=== PATIENT | female | born 1985 | race Caucasian/White ===

== ENCOUNTER → 2018-04-12 14:18 | Outpatient (CLI) | payer BC, SELFPAY ==
[2018-04-12 08:12] VITALS: BMI 30.5
--- OUTSIDE RECORDS SUMMARY | 2018-06-14 14:50 | XMS RPT_ITS ---
:1985 Author Organization OHIP Care Team Providers Name Role Phone ALONSO FULLER ([facility]) Attending Unavailable Adam Brantley Attending Unavailable Jean Paul Bravo Referring Unavailable Adam Brantley Attending Unavailable Adam Brantley Referring Unavailable Jean Paul Bravo Primary Care Unavailable PROBLEMS PROBLEMS DATE TYPE CONDITION / CODE ATTENDING STATUS SOURCE 04/12/2018 Unknown J02.9 - Acute Adam Brantley Active Sarah pharyngitis, Community unspecified / Hospital J02.9(ICD-10) Repository PROCEDURES PROCEDURES No Procedure Records FoundRESULTS RESULTS Observed: 04/12/2018 Status: F Source: [place] CULTURE, R/O STREP A 2:36 PM [facility] REPOSITORY KEESHA Culture No Group A Beta Streptococcus isolated. * This cultures intended use is to screen for Beta Streptococcus A only. All other pathogens and potential pathogens will not be screened for or reported. If a complete workup of all potential pathogens is indicated an order for a routine throat culture is required. ORGANISM 1: Streptococcus group C Amount Growth 1+ Performed By: #### M100.010 #### [facility] [address] 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 No complaints of fever, sweats, rash, nausea, constricted/pruritic airway, drooling, cough, chest pressure/shortness of breath/wheeze. Patient is a non-smoker noting no other members in household who smoke or have similar symptoms. No cghj-gzt-guocklb products have been taken to assist with symptoms. No other associated symptoms and no other alleviating or aggravating factors. ROS Const Constitutional: No other (ROS negative x10 other than as noted above) Exam Const General: cooperative, healthy appearing, no acute distress, uncomfortable Nutritional Appearance: average body habitus Orientation: alert, awake, oriented x3 HENMT Head: normal to inspection Ears: hearing grossly normal bilaterally, external ears normal, TM's normal bilaterally, EAC's normal Nose: external nose normal, nares normal, septum normal, no nasal discharge Face and sinus: normal facial exam, sinuses nontender, face symmetric Mouth: tongue normal, lip normal, oral mucosae normal Teeth and gingiva: dentition normal, gingiva normal Throat: uvula midline, posterior oropharynx normal, no postnasal drainage, abnormal tonsil bilaterally erythema (Rapid strep test today negative) Eyes General: appearance normal, both eyes and all related structures Neck Neck: normal visual inspection, full ROM, no lymphadenopathy, no meningeal signs, supple Neck mass: No Thyroid: thyroid normal Lymphatic: no lymphadenopathy noted Chest Chest palpation AND inspection: normal inspection of the chest Resp Effort AND Inspection: normal respiratory effort, able to speak in complete sentences Auscultation: Bilateral: Clear to Auscultation Cardio Palpation: normal PMI Rate: regular rate Rhythm: regular rhythm Heart Sounds: S1 normal, S2 normal, no gallops, no murmurs, no rubs Pulses: radial pulses present GI Inspection: normal to inspection Palpation: soft, no hepatosplenomegaly Skin General: no rashes or lesions noted Neuro General: alert, awake, oriented x3, gait normal Cognition: normal cognition Speech: speech normal Gait: normal gait Motor: muscle tone normal throughout Sensory Exam: no sensory deficits noted Psych Appearance: grossly normal Mental Status: mental status grossly normal Mood: congruent mood Affect: normal affect Speech and Movement: speech and movement normal Attitude: cooperative Thought Process: normal Thought Content: normal Judgment: judgment good Results BMSRAPIDSTREPA Office Rapid Strep A Negative Last Edit by Loiusa Wadsworth on 04/12/18 08:20 Assessment AND Plan Plan Patient aware today's rapid strep test was negative therefore culture sent to lab for further evaluation. Clear fluids, rest, Advil/Tylenol/Claritin-D, saltwater gargles as needed for symptomatic relief. Avoid tobacco smoke exposure. Work excuse for today and tomorrow at patient's request. Follow-up PCP in 5-7 days should symptoms not improve, sooner should symptoms worsen or any other concerns develop. Patient states acknowledging understanding all the above. This note was generated with [employer] dictation software. It may contain incorrect words, spelling, and punctuation that were not noted in checking the note before signing. Orders Orders: Coding Level of Care Code Off vis,new,level 3 04/12/18 0837 <Electronically signed by Adam DOYLE> Date Adam DOYLE Cosigner Signature: Date (if applicable) CC: PROGRESS Observed: 10/12/2017 Status: COMPLETED Source: [place] 8:[address] [facility] REPOSITORY HNO ID: [id number] Author: Alonso Mcgowan (Catalyst Manufacturing Operator) Jonny Service: (none) Author Type: Nurse Practitioner Type: Progress Notes Filed: 10/12/2017 8:05 AM Note Text: HPI/CC: Magno Villasenor is a 32 year old female who [facility]. New concerns today include none- needs refills Has not used ativan in many months. REVIEW OF SYSTEMS: GENERAL:Denies fever, chills, night sweats, or changes in weight. DERMATOLOGIC: Denies any new skin conditions, rashes or changing moles. EYES: Denies recent visual changes., wears glasses/contacts ENT: Denies hearing loss or tinnitus RESPIRATORY: Denies any cough, dyspnea, or wheezing. CARDIOVASCULAR: Denies any chest pain with exertion or at rest, palpitations, syncope, or edema. BREASTS: Denies any breast lumps, tenderness, dimpling, skin changes, or nipple discharge. GASTROINTESTINAL: Denies any nausea, vomiting, abdominal pain, heartburn, changes in bowel habit, Denies any rectal bleeding. GENITOURINARY: Denies any urinary frequency, urgency, incontinence, dysuria. Denies vaginal odor, discharge or lesions. Denies irregular vaginal bleeding or spotting. No LMP recorded. Patient is not currently having periods (Reason: IUD). MUSCULOSKELETAL: Denies any joint swelling, crepitus, joint pain, or loss of range of motion., Denies back pain. NEURO: Denies any headaches, tremors, dizziness, vertigo, memory loss, confusion., Denies weakness, numbness or tingling.. PSYCHIATRIC: Denies any sleeping problems, history of abuse, marital discord., Denies any anxiety or depression. HEMATOLOGIC/LYMPHATIC/IMMUNOLOGIC: Denies anemia, bruising, bleeding abnormalities. ENDOCRINE: Denies any heat or cold intolerance, polyuria or polydipsia. HISTORIES PAST MEDICAL HISTORY Diagnosis Date - Anxiety disorder PAST SURGICAL HISTORY Procedure Laterality Date - LEEP PROCEDURE (CONSTRUCTION DRILLER DEPT)_*FL 2002 EXCISION OF VULVAR AND PERINEAL CONDYLOMA - VAGINOSCOPY 2014 FAMILY HISTORY Problem Relation Age of Onset - healthy [OTHER] Mother - healthy [OTHER] Father - No Known Problems Brother - No Known Problems Brother - No Known Problems Son - No Known Problems Daughter Social History Marital status: Spouse name: KAREN Years of education: 12 Number of children: 2 Occupational History Occupation Employer Comment [employer] Social History Main Topics Smoking status: Current Every Day Smoker Packs/day: 1.00 Years: 2.00 Types: Cigarettes Smokeless tobacco: Never Used Alcohol use: Yes Comment: rare Drug use: No Sexual activity: Yes Partners with: Male Comment: Mirena Social History Narrative 2 kids- 1 son, 1 dtr Current Outpatient Prescriptions on File Prior to Visit: Levonorgestrel (MIRENA) 20 mcg/24 hr INTRAARTIC IUD use as directed No current facility-administered medications on file prior to visit. ALLERGIES No Known Allergies OBJECTIVE/PHYSICAL EXAMINATION: BP 94/66 Pulse 84 Resp 16 Wt 80.3 kg (177 lb) BMI 30.38 kg/m? General appearance: Well appearing, alert, in no acute distress, well-hydrated, well nourished. Skin: Skin color, texture, turgor normal, no suspicious rashes or lesions Head: Normocephalic, no masses, lesions, tenderness or abnormalities Eyes: Anicteric sclera. Pupils are equally round and reactive to light. Extraocular movements are intact. Ears: External ears normal, canals clear, TM's normal Nose/Sinuses: Nares normal, septum midline, mucosa normal, no drainage or sinus tenderness Oropharynx: Lips, mucosa, and tongue normal, teeth and gums normal, oropharynx normal Neck: Supple, no adenopathy; thyroid symmetric, normal size, no bruits Back: Normal exam Lungs: Lungs clear to auscultation. No wheezing, rhonchi, rales Heart: Regular rate and rythm without murmur, normal S1 and S2 Breasts: deferred Abdomen: Normal abdominal exam, Abdomen soft, non-tender. Bowel sounds normal. No masses, organomegaly Extremities: No deformities, edema, skin discoloration, clubbing or cyanosis. Good capillary refill. Musculoskeletal: Spine range of motion normal. Muscular strength intact, No joint swelling, deformity, or tenderness Peripheral pulses: Normal Neuro:Awake, alert and oriented x 3, Cranial nerves II-XII grossly intact, Reflexes symmetrical, Normal gait and No involuntary motions. Pelvic: Deferred ASSESSMENT/PLAN: 1. Anxiety disorder, unspecified type - ICD9: 300.00, ICD10: F41.9 - CITALOPRAM 20 MG TABLET - LORAZEPAM 0.5 MG TABLET. [facility] website checked and validated. All prescriptions have been APPROPRIATELY filled. No suspicious activity was identified. 10/12/2017 by Alonso Fuller APRN.ABDULKADIR -f/u in 1 year Alonso Fuller APRN.CNP CNOV Observed: 10/12/2017 Status: COMPLETED Source: [place] 7:40 AM [facility] REPOSITORY Office Visit (FAMPWS) MAGNO VILLASENOR ([id number]) 1985 F Date Time Provider Department 10/12/17 7:40 AM ALONSO FULLER (ABDULKADIR) FAMPWS During your visit today, we recorded the following information about you: Pulse Respiration Blood pressure Weight 84/minute 16/minute 94/66 80.3 kg Alonso Fuller APRN.CNP 10/12/2017 8:05 AM Signed HPI/CC: Magno Villasenor is a 32 year old female who presents for a well adult exam/[facility] care. New concerns today include none- needs refills Has not used ativan in many months. REVIEW OF SYSTEMS: GENERAL:Denies fever, chills, night sweats, or changes in weight. DERMATOLOGIC: Denies any new skin conditions, rashes or changing moles. EYES: Denies recent visual changes., wears glasses/contacts ENT: Denies hearing loss or tinnitus RESPIRATORY: Denies any cough, dyspnea, or wheezing. CARDIOVASCULAR: Denies any chest pain with exertion or at rest, palpitations, syncope, or edema. BREASTS: Denies any breast lumps, tenderness, dimpling, skin changes, or nipple discharge. GASTROINTESTINAL: Denies any nausea, vomiting, abdominal pain, heartburn, changes in bowel habit, Denies any rectal bleeding. GENITOURINARY: Denies any urinary frequency, urgency, incontinence, dysuria. Denies vaginal odor, discharge or lesions. Denies irregular vaginal bleeding or spotting. No LMP recorded. Patient is not currently having periods (Reason: IUD). MUSCULOSKELETAL: Denies any joint swelling, crepitus, joint pain, or loss of range of motion., Denies back pain. NEURO: Denies any headaches, tremors, dizziness, vertigo, memory loss, confusion., Denies weakness, numbness or tingling.. PSYCHIATRIC: Denies any sleeping problems, history of abuse, marital discord., Denies any anxiety or depression. HEMATOLOGIC/LYMPHATIC/IMMUNOLOGIC: Denies anemia, bruising, bleeding abnormalities. ENDOCRINE: Denies any heat or cold intolerance, polyuria or polydipsia. HISTORIES PAST MEDICAL HISTORY Diagnosis Date - Anxiety disorder PAST SURGICAL HISTORY Procedure Laterality Date - LEEP PROCEDURE (CONSTRUCTION DRILLER DEPT)_*FL 2002 EXCISION OF VULVAR AND PERINEAL CONDYLOMA - VAGINOSCOPY 2014 FAMILY HISTORY Problem Relation Age of Onset - healthy [OTHER] Mother - healthy [OTHER] Father - No Known Problems Brother - No Known Problems Brother - No Known Problems Son - No Known Problems Daughter Social History Marital status: Spouse name: KAREN Years of education: 12 Number of children: 2 Occupational History Occupation Employer Comment [employer]* Social History Main Topics Smoking status: Current Every Day Smoker Packs/day: 1.00 Years: 2.00 Types: Cigarettes Smokeless tobacco: Never Used Alcohol use: Yes Comment: rare Drug use: No Sexual activity: Yes Partners with: Male Comment: Mirena Social History Narrative 2 kids- 1 son, 1 dtr Current Outpatient Prescriptions on File Prior to Visit: Levonorgestrel (MIRENA) 20 mcg/24 hr INTRAARTIC IUD use as directed No current facility-administered medications on file prior to visit. ALLERGIES No Known Allergies OBJECTIVE/PHYSICAL EXAMINATION: BP 94/66 Pulse 84 Resp 16 Wt 80.3 kg (177 lb) BMI 30.38 kg/m? General appearance: Well appearing, alert, in no acute distress, well-hydrated, well nourished. Skin: Skin color, texture, turgor normal, no suspicious rashes or lesions Head: Normocephalic, no masses, lesions, tenderness or abnormalities Eyes: Anicteric sclera. Pupils are equally round and reactive to light. Extraocular movements are intact. Ears: External ears normal, canals clear, TM's normal Nose/Sinuses: Nares normal, septum midline, mucosa normal, no drainage or sinus tenderness Oropharynx: Lips, mucosa, and tongue normal, teeth and gums normal, oropharynx normal Neck: Supple, no adenopathy; thyroid symmetric, normal size, no bruits Back: Normal exam Lungs: Lungs clear to auscultation. No wheezing, rhonchi, rales Heart: Regular rate and rythm without murmur, normal S1 and S2 Breasts: deferred Abdomen: Normal abdominal exam, Abdomen soft, non-tender. Bowel sounds normal. No masses, organomegaly Extremities: No deformities, edema, skin discoloration, clubbing or cyanosis. Good capillary refill. Musculoskeletal: Spine range of motion normal. Muscular strength intact, No joint swelling, deformity, or tenderness Peripheral pulses: Normal Neuro:Awake, alert and oriented x 3, Cranial nerves II-XII grossly intact, Reflexes symmetrical, Normal gait and No involuntary motions. Pelvic: Deferred ASSESSMENT/PLAN: 1. Anxiety disorder, unspecified type - ICD9: 300.00, ICD10: F41.9 - CITALOPRAM 20 MG TABLET - LORAZEPAM 0.5 MG TABLET. [employer] website checked and validated. All prescriptions have been APPROPRIATELY filled. No suspicious activity was identified. 10/12/2017 by Alonso Fuller APRN.AUTOMOTIVE FUEL INJECTION SERVICER -f/u in 1 year Alonso Fuller APRN.AUTOMOTIVE FUEL INJECTION SERVICER Referring Provider: SELF [200] Allergies As of Date: 10/12/2017 (No Known Allergies) Date Reviewed: 10/12/2017 Reviewed by: Guerrero Toscano LPN - Fully Assessed Reason for Visit: Recheck [92] Cmt: medication refills Visit Diagnosis:Anxiety disorder, unspecified type [F41.9] Order(s):citalopram (CELEXA) 20 mg tabletTake 1 tablet by mouth once daily.Disp: 30 tabletRfl: 10 LORazepam (ATIVAN) 0.5 mg tabTake 1 tablet by mouth twice daily as needed (anxiety) for up to 180 days.Disp: 20 tabletRfl: 1 Prescriptions as of 10/12/2017 Sig: CITALOPRAM 20 MG TABLET Take 1 tablet by mouth once d* LORAZEPAM 0.5 MG TABLET Take 1 tablet by mouth twice * MIRENA 20 MCG/24 HR (5 YEARS)* use as directed Problem List As Of Date 10/12/2017 Noted Resolved SUPERVIS OTHER NORMAL PREG [Z34.80] INVALID FOR*06/15/2006 COMMON MIGRAINE W/O MENTN INTRACT [G43.009] INVALID FOR* Anxiety disorder [F41.9] INVALID FOR* Prescriptions ordered this encounter Disp Refills Start End CITALOPRAM 20 MG TABLET 30 t* 10 10/12/2017 11/11/2017 Route: ORAL Sig: Take 1 tablet by mouth once daily. LORAZEPAM 0.5 MG TABLET 20 t* 1 10/12/2017 04/10/2018 Class: Print RX Route: ORAL Sig: Take 1 tablet by mouth twice daily as needed (anxiety) for up to 180 days. Medications Discontinued During This Encounter buPROPion XL (WELLBUTRIN XL) 150 mg * 90 t* 3 05/13/2017 10/12/2017 Route: ORAL Sig: Take 1 tablet by mouth once daily. Disc: Reason for discontinue is not on file. citalopram (CELEXA) 20 mg tablet 30 t* 0 09/23/2017 10/12/2017 Route: ORAL Sig: Take 1 tablet by mouth once daily. Disc: Reason for discontinue is not on file. LORazepam (ATIVAN) 0.5 mg tab 20 t* 1 09/13/2016 10/12/2017 Class: Print RX Route: ORAL Sig: Take 1 tablet by mouth twice daily as needed (anxiety). Disc: Reason for discontinue is not on file. Encounter Status:Closed by ALONSO FULLER CNP on 10/12/17 ALLERGIES ALLERGIES DATE TYPE / CODE NAME / CODE REACTION SEVERITY SOURCE 04/12/2018 Drug No Known Unknown [facility] Allergy/416 Allergies/I50169 Hospital 154178(SNOM 0388(RXNORM) Repository ED CT) Drug NO KNOWN [facility] Class/02656 ALLERGIES Main [place] 1003(SNOMED Repository CT) ENCOUNTERS ENCOUNTERS ADMIT/DISCHARGE ACCOUNT ADMITTING ENCOUNTER LOCATION SOURCE NUMBER CLASS 04/12/2018 [id number] [facility] ing:[facility]SPEC Repository 04/12/2018/04/12/19 [id number] Ambulatory BMSBuilding:[address] [place] [address].[facility] Repository 10/12/2017/10/14/19 [id number] Ambulatory [address] Repository PAYERS PAYERS ENCOUNTER GUARANTOR PAYER SUBSCRIBER SOURCE 04/12/2018 KAREN VILLASENOR3359 [facility] [place] Insurance:ANTHEMPolic ROSEDOB: [facility] mag BRANDON y Number: [id number] Hospital [address]Wun: (330) [id number] Repository [phone] () Date:[id number] [address], [place] [address]JI: 04/12/2018 Secondary NOT GIVENUNK [place] Insurance:SELF PAY [facility] Number: Effective Repository Date:2018-04-12 04/12/2018 KAREN VILLASENOR3359 [facility] [place] Insurance:ANTHEMPolic ROSEDOB: [facility] mag BRANDON y Number: [id number] Hospital [id number]: (330 [id number] Repository [phone] () Date:[id number] [address], [place] [address]BH: 04/12/2018 Secondary NOT GIVENUNK Sarah Insurance:SELF PAY [facility] Number: Effective Repository Date:2018-04-12
== END ==
LOC: LABSPEC 14:20
PROVIDERS: Family Provider Family Medicine; PCP Family Medicine; Referring Provider Physician Assistant; Visit Provider Physician Assistant
DX: J02.9 Acute pharyngitis, unspecified (principal)
CPT/HCPCS: 87081

== ENCOUNTER → 2019-05-29 09:48 | Outpatient (CLI) | payer BC, SELFPAY ==
[2018-04-12 08:12] VITALS: BMI 30.5
--- NOTE | 2019-05-29 09:53 | US_ITS ---
STUDY: ABDOMINAL ULTRASOUND - RIGHT UPPER QUADRANT REASON FOR VISIT: Female, 34 years old. Right upper quadrant pain, on and off x3 weeks. TECHNIQUE: Ultrasound evaluation of the right upper quadrant was performed with real-time and static blanc-scale imaging. TECHNICAL QUALITY: Adequate. COMPARISON: None. FINDINGS: Liver: The liver measures 12.4 cm. There is normal echogenicity of the liver. The bile ducts are within normal limits. There is hepatic color flow. The direction of portal flow is hepatopetal. There is no demonstrated mass lesion. Gallbladder: Normal distended gallbladder. The gallbladder wall measures 1.8 mm. There is a negative sonographic Dan''s sign. There is no pericholecystic fluid. There are no gallstones. Common Bile Duct (C.B.D.): The common bile duct measures 3.1 mm. Pancreas: Normal size of the head, body and tail of the pancreas. There is normal echogenicity of the pancreas. There is no demonstrated pancreatic mass or cyst. The pancreatic duct is not dilated. Right Kidney: Normal size of the right kidney. The right kidney measures 11.1 x 6.1 x 3.9 cm. Normal renal cortex. The right cortex measures 1.1 cm. There is no demonstrated renal mass or cyst. There is no right hydronephrosis. US/Abdomen Limited IMPRESSION: Normal right upper quadrant ultrasound examination. Electronically Signed: Ryan Tovar MD at 9:13 EDT , Service support ,
== END ==
LOC: US 09:49
PROVIDERS: PCP Family Medicine; Referring Provider Family Medicine; Visit Provider Family Medicine
DX: R10.11 Right upper quadrant pain (principal)
CPT/HCPCS: 76705

== ENCOUNTER → 2019-07-26 12:04 | Outpatient (CLI) | payer BC, SELFPAY ==
[2018-04-12 08:12] VITALS: BMI 30.5
[2019-07-26 15:43] LABS: T4 Free Direct 1.36 ng/dL (0.76-1.46); Thyroid Stim Hormone (TSH) 1.27 uIU/mL (0.358-3.74)
[2019-07-30 20:17] LABS: Anti-Thyroglobulin AB < 1.0 IU/mL (0.0-0.9); Thyroglobulin, Serum Qt. 24.3 ng/mL (1.5-38.5); Thyroid Peroxidase AB < 9 IU/mL (0-34)
== END ==
LOC: MFPLAB 12:05
PROVIDERS: PCP Family Medicine; Visit Provider Family Medicine
DX: E01.0 Iodine-deficiency related diffuse (endemic) goiter (principal)
CPT/HCPCS: 36415; 84432; 84439; 84443; 86376; 86800

== ENCOUNTER → 2019-08-07 09:11 | Outpatient (CLI) | payer BC, SELFPAY ==
[2018-04-12 08:12] VITALS: BMI 30.5
--- NOTE | 2019-08-07 09:16 | US_ITS ---
STUDY: THYROID ULTRASOUND REASON FOR EXAM: Female, 34 years old. Thyromegaly on exam TECHNIQUE: Ultrasound evaluation of the thyroid was performed with real-time and static blanc-scale imaging. COMPARISON: None. FINDINGS: RIGHT LOBE: The right lobe of the thyroid gland measures 5.4 x 1.8 x 1.5 cm. There is a homogeneous echotexture. There are no demonstrated solid, cystic or complex lesions. LEFT LOBE: The left lobe of the thyroid gland measures 5.4 x 1.7 x 1.6 cm. There is a homogeneous echotexture. There are no demonstrated solid, cystic or complex lesions. ISTHMUS: The isthmus measures 0.3 cm. The regional lymph nodes are normal. US/Thyroid IMPRESSION: Borderline enlargement of the thyroid, but no discrete lesion or hyperemia. Thyroid is homogeneous and sonographically normal in appearance. Electronically Signed: Delmer Lazo MD at 10:11 EDT , Service support ,
== END ==
PROVIDERS: PCP Family Medicine; Referring Provider Family Medicine; Visit Provider Family Medicine
DX: E01.0 Iodine-deficiency related diffuse (endemic) goiter (principal)
CPT/HCPCS: 76536

== ENCOUNTER → 2019-08-24 09:04 | Outpatient (CLI) | payer BC, SELFPAY ==
[2018-04-12 08:12] VITALS: BMI 30.5
[2019-08-24 10:13] LABS: Absolute Lymphocyte Count 1.91 X10^3/uL (0.83-4.51); Absolute Neutrophil Count 2.5 X10^3/uL (2.0-7.7); Basophil# 0.05 X10^3/uL; Eosinophil# 0.13 X10^3/uL; Eosinophils% 2.6 % (0-5); Hematocrit 41.5 % (37-47); Hemoglobin 13.8 g/dL (12.0-15.0); Lymphocyte # 1.91 X10^3/ul (4.0); Lymphocyte % 38.2 % (19-41); Mean Corp Hgb Conc 33.3 g/dL (32-36); Mean Corpuscular Hgb 30.3 pg (27.0-32.0); Mean Corpuscular Volume 91.2 fL (81-99); Mean Platelet Vol. 10.8 fl (6.2-12.0); Monocyte# 0.42 X10^3/uL; Monocyte% 8.4 % (0-10); NRBC Flagged by Analyzer 0 % (0-5); Neutrophil # 2.48 X10^3/uL (2.7-7.7); Neutrophil % 49.6 % (47-70); Platelet Count 314 K/mm3 (150-450); RBC Distribution Width CV 12.3 % (11.6-14.6); RBC Distribution Width SD 40.9 fl (35.1-43.9); Red Blood Count 4.55 M/mm3 (4.2-5.4)
[2019-08-24 10:28] LABS: ALB/GLOB Ratio 1.3 RATIO (0.9-2.4); AST(SGOT) 12 U/L (15-37); Alanine Aminotransfer ALT/SGPT 20 U/L (13-56); Albumin, Serum 4.1 g/dL (3.2-5.0); Alkaline Phosphatase 57 U/L (45-117); Anion Gap 4 (5-15); BUN 12 mg/dL (7-18); BUN/Creat Ratio 15.2 RATIO (10-20); Calcium,Total 8.9 mg/dL (8.5-10.1); Chloride 108 mmol/L (98-107); Cholesterol 126 mg/dL (200); Creatinine, Serum 0.79 mg/dL (0.55-1.02); EST Glomerular Filtration Rate 87 mL/min (>60); Est Glom Filt Rate - Afr Amer 106 mL/min (>60); Globulin 3.1 g/dL (2.2-4.2); Glucose 90 mg/dL (74-106); High Density Lipoprotein 57 mg/dL; Potassium 4.2 mmol/L (3.5-5.1); Protein, Total 7.2 g/dL (6.4-8.2); Sodium Level 140 mmol/L (136-145); Triglycerides 37 mg/dL; Very Low Density Lipoprotein 7 mg/dL (5-40)
== END ==
PROVIDERS: PCP Family Medicine; Referring Provider Family Medicine; Visit Provider Family Medicine
DX: Z00.00 Encounter for general adult medical examination without abnormal findings (principal)
CPT/HCPCS: 36415; 80053; 80061; 85025

== ENCOUNTER 2019-08-26 15:41 | Emergency (ER) | payer BC, SELFPAY ==
[2018-04-12 08:12] VITALS: BMI 30.5
[2019-08-26 15:43] VITALS: BP 146/97; PULSE 109; RESP 16; TEMP 36.5; O2SAT 98; BMI 26.2
--- NOTE | 2019-08-26 15:57 | ED.VISSUMM ---
- ER Visit Summary Date of Service: 08/26/19 Chief Complaint: [Lump above collarbone] History of Present Illness: The patient is a 34 F [does the emergency department complaint of a lump above her collarbone that she noticed this morning. Patient states that she was sitting in a have some coffee and had a soreness above her collarbone when she touched that she noted a lump that was painful. Patient states that she had a physical 2 days ago and received a tetanus shot. Patient had complained at that time of some soreness in her throat and left ear. Is any fever or cough. She has no medical history.] Physical Examination: [HEENT-PERRLA, EOMI. Cranial nerves II through XII grossly intact. TMs clear. Mucous membranes moist. No adenopathy. Patient has a left supraclavicular lymph node that measures about a centimeter in diameter that is tender to palpation. The lymph node is freely movable. There is no erythema or cellulitis noted. Cardiovascular-regular rate and rhythm without murmur or ectopy Lungs-clear to auscultation, chest wall stable without crepitus or subcu emphysema Abdomen-normoactive bowel sounds, soft, nontender, no rebound or rigidity, no peritoneal signs. Extremities-intact ?4, normal range of motion, normal pulses, atraumatic.] Test Results: [None indicated] Emergency Department Course and Treatment: [Patient was started on Augmentin] Treatment Plan: [We will be treated with Augmentin and referred to ENT for follow-up in 5 to 7 days.] Disposition: [Discharged home in stable condition] Impression: [Adenitis] This note was generated with [employer] dictation software. It may contain incorrect words, spelling, and punctuation that were not noted in review of the chart prior to signing ED Disposition - Plan for ED Patient: Referrals: Vito Cedillo MD [Primary Care Provider] -
--- NOTE | 2019-08-26 15:59 | DCINST.ED_ITS ---
ED Disposition - Plan for ED Patient: Instructions: ED ADENITIS Cervical Abx Tx Prescriptions: Amoxicillin/Potassium Clav [Augmentin 875-125 Tablet] 1 ea PO BID #20 tab Transmission Status: Pending to [id number] Referrals: Vito Cedillo MD [Primary Care Provider] - Oleg Gallagher MD [STAFF PHYSICIAN] - 5-7 Days
[2019-08-26 16:21] VITALS: PULSE 88; RESP 16; O2SAT 99
== END 2019-08-26 16:22 | disposition home or self-care (01) ==
LOC: ED 16:18
PROVIDERS: Emergency Provider Emergency Medicine; PCP Family Medicine
DX: I88.9 Nonspecific lymphadenitis, unspecified (principal)
CPT/HCPCS: 99282

== ENCOUNTER → 2019-08-29 10:19 | Outpatient (CLI) | payer BC, SELFPAY ==
[2019-08-26 15:43] VITALS: BMI 26.2
--- NOTE | 2019-08-29 10:24 | US_ITS ---
STUDY: SUPERFICIAL ULTRASOUND - LEFT SUPRACLAVICULAR REGION. REASON FOR EXAM: Female, 34 years old. PALPABLE LUMP LT SUPRACLAVICULAR TECHNIQUE: A superficial ultrasound was performed with real-time and static blanc-scale imaging. COMPARISON: None. FINDINGS: The palpable abnormality corresponds to a 1.3 cm x 1.2 cm x 0.7 cm predominantly cystic nodule. A biopsy is recommended. Adjacent to this, there is a 9 mm x 5 mm x 5 mm similar-appearing nodule. US/Head/Neck Soft Tissue IMPRESSION: There are 2 predominantly cystic nodules in the left supraclavicular region as described. Aspiration/biopsy recommended. Electronically Signed: Jose Juan Mcguire, at 11:40 EDT , Service support ,
== END ==
PROVIDERS: PCP Family Medicine; Referring Provider Family Medicine; Visit Provider Family Medicine
DX: R22.1 Localized swelling, mass and lump, neck (principal)
CPT/HCPCS: 76536

== ENCOUNTER → 2020-08-27 08:22 | Outpatient (CLI) | payer BC, SELFPAY ==
[2019-09-06 07:55] VITALS: BMI 25.7
[2020-08-27 10:00] LABS: Absolute Neutrophil Count 3.4 X10^3/uL (2.0-7.7); Basophil# 0.04 X10^3/uL; Basophil% 0.7 % (0-1); Eosinophil# 0.19 X10^3/uL; Eosinophils% 3.2 % (0-5); Hematocrit 42.3 % (37-47); Hemoglobin 14.4 g/dL (12.0-15.0); Lymphocyte % 31.9 % (19-41); Mean Corpuscular Hgb 30.2 pg (27.0-32.0); Mean Corpuscular Volume 88.7 fL (81-99); Mean Platelet Vol. 10.7 fl (6.2-12.0); Monocyte# 0.45 X10^3/uL; Monocyte% 7.6 % (0-10); NRBC Flagged by Analyzer 0 % (0-5); Neutrophil # 3.36 X10^3/uL (2.7-7.7); Neutrophil % 56.4 % (47-70); Platelet Count 337 K/mm3 (150-450); RBC Distribution Width CV 12.2 % (11.6-14.6); RBC Distribution Width SD 39.9 fl (35.1-43.9); Red Blood Count 4.77 M/mm3 (4.2-5.4)
[2020-08-27 10:26] LABS: ALB/GLOB Ratio 1.2 RATIO (0.9-2.4); AST(SGOT) 14 U/L (15-37); Alanine Aminotransfer ALT/SGPT 22 U/L (13-56); Albumin, Serum 4.1 g/dL (3.2-5.0); Alkaline Phosphatase 56 U/L (45-117); Anion Gap 6 (5-15); BUN 12 mg/dL (7-18); BUN/Creat Ratio 15.4 RATIO (10-20); Calcium,Total 8.8 mg/dL (8.5-10.1); Chloride 107 mmol/L (98-107); Creatinine, Serum 0.78 mg/dL (0.55-1.02); EST Glomerular Filtration Rate 88 mL/min (>60); Est Glom Filt Rate - Afr Amer 107 mL/min (>60); Globulin 3.4 g/dL (2.2-4.2); Glucose 89 mg/dL (74-106); Potassium 3.9 mmol/L (3.5-5.1); Protein, Total 7.5 g/dL (6.4-8.2); Sodium Level 139 mmol/L (136-145); T4 Free Direct 1.01 ng/dL (0.76-1.46); Thyroid Stim Hormone (TSH) 1.73 uIU/mL (0.358-3.74)
== END ==
LOC: MFPLAB 08:22
PROVIDERS: PCP Family Medicine; Referring Provider Family Medicine; Visit Provider Family Medicine
DX: R63.5 Abnormal weight gain (principal)
CPT/HCPCS: 36415; 80053; 84439; 84443; 85025